=== PATIENT | female | born 1990 | race African-American/Black ===

== ENCOUNTER 2019-06-30 22:39 | Emergency (ER) | payer SELFPAY ==
[~2019-06-30] VITALS: Ht 167.6 cm; Wt 81.0 kg
[2019-07-01 00:24] VITALS: BP 121/80
== END 2019-07-01 07:09 | disposition home or self-care (01) ==
LOC: ER 07-01 07:06
DX: G56.02 Carpal tunnel syndrome, left upper limb (principal)
CPT/HCPCS: 81025; 99283

== ENCOUNTER 2019-07-02 16:38 | Emergency (ER) | payer MEDICAID ==
[~2019-07-02] VITALS: Ht 167.6 cm; Wt 81.0 kg
[2019-07-02] MEDS ORDERED: LORAZEPAM 2MG/ML CPJ IV ONE (17:45)
[2019-07-02] MEDS ORDERED: SODIUM CHLORIDE 0.9% 1,000 ML IV ONE (17:45)
[2019-07-02 18:00] VITALS: BP 129/88
[2019-07-02 18:17] LABS: HEMATOCRIT 37.3 % (36.0-48.0); HEMOGLOBIN 12.6 g/dL (12.0-16.0); MEAN CORPUSCULAR HEMOGLOBIN 31.6 pg (28.0-32.0); MEAN CORPUSCULAR VOLUME 93.2 fL (81.0-99.0); PLATELET 277 x1000/uL (130-400); RED CELL DISTRIBUTION WIDTH 17.2 % (11.6-14.6)
[2019-07-02 18:24] LABS: CHLORIDE 105 mEq/L (98-107)
[2019-07-02 18:28] LABS: ETHANOL BLOOD 167 mg/dL
[2019-07-02 19:21] LABS: CLARITY URINE CLEAR (CLEAR); COLOR URINE YELLOW (YELLOW); KETONES URINE 2+ (NEGATIVE); LEUKOCYTE ESTERASE URINE NEGATIVE (NEGATIVE); NITRITE URINE NEGATIVE (NEGATIVE); OCCULT BLOOD URINE NEGATIVE (NEGATIVE); PROTEIN URINE NEGATIVE (NEGATIVE); SPECIFIC GRAVITY URINE 1.008 (1.005-1.030); UROBILINOGEN URINE 0.2 E.U./dL (0.2-1.0)
== END 2019-07-02 19:54 | disposition home or self-care (01) ==
LOC: ER 17:38
DX: F10.239 Alcohol dependence with withdrawal, unspecified (principal); R53.1 Weakness; Y90.6 Blood alcohol level of 120-199 mg/100 ml
CPT/HCPCS: 36415; 80053; 80320; 81003; 85027; 96374; 99283; J2060; J7030; G0480

== ENCOUNTER 2019-07-22 11:01 | Emergency (ER) | payer MEDICAID ==
[~2019-07-22] VITALS: Ht 167.6 cm; Wt 80.0 kg
[2019-07-22] MEDS ORDERED: HYDROCODONE/ACETAMINOPHEN 5/325MG TABLET PO ONE (14:15)
[2019-07-22] MEDS ORDERED: TETANUS, DIPHTHERIA, PERTUSSIS VAC/PF 0.5ML (>7YR OLD) IM ONE (14:30)
[2019-07-22] MEDS ORDERED: BACITRACIN 15GM TUBE TOP ONE (15:15)
[2019-07-22 15:32] VITALS: BP 135/93
== END 2019-07-22 15:33 | disposition home or self-care (01) ==
LOC: ER 11:01
DX: S62.616A Displaced fracture of proximal phalanx of right little finger, initial encounter for closed fracture (principal); W01.0XXA Fall on same level from slipping, tripping and stumbling without subsequent striking against object, initial encounter; Y93.89 Activity, other specified; Y92.89 Other specified places as the place of occurrence of the external cause; Y99.8 Other external cause status
CPT/HCPCS: 29125; 73110; 73130; 81025; 90471; 90715; 99283

== ENCOUNTER 2020-03-13 15:49 | Emergency (ER) | payer MEDICAID ==
[~2020-03-13] VITALS: Ht 167.6 cm; Wt 68.0 kg
[2020-03-13] MEDS ORDERED: FLUORESCEIN SODIUM 1MG/STRIP EACHEYE ONE (17:30)
[2020-03-13] MEDS ORDERED: TETRACAINE 0.5% OPHTH DROPS 4ML LEFTEYE ONE (17:30)
[2020-03-13] MEDS ORDERED: HYDROCODONE/ACETAMINOPHEN 5/325MG TABLET PO ONE (17:30)
[2020-03-13 20:29] VITALS: BP 138/64
== END 2020-03-13 20:30 | disposition home or self-care (01) ==
LOC: ER 15:49
DX: S05.91XA Unspecified injury of right eye and orbit, initial encounter (principal); X58.XXXA Exposure to other specified factors, initial encounter; Y93.89 Activity, other specified; Y92.89 Other specified places as the place of occurrence of the external cause; Y99.8 Other external cause status
CPT/HCPCS: 70486; 81025; 99285

== ENCOUNTER 2020-05-07 01:06 | Emergency (ER) | payer MEDICAID ==
[~2020-05-07] VITALS: Ht 167.6 cm; Wt 76.0 kg
[2020-05-07 03:10] LABS: CHLORIDE 97 mEq/L (98-107)
[2020-05-07 03:15] LABS: HEMOGLOBIN. 13.4 g/dL (12.0-16.0); MEAN CORPUSCULAR HEMOGLOBIN 34.9 pg (28.0-32.0); MEAN CORPUSCULAR VOLUME 101.7 fL (81.0-99.0); MEAN PLATELET VOLUME 9.6 fl (7.4-10.4); PLATELET 226 x1000/uL (130-400); RED BLOOD CELL COUNT 3.83 mill/uL (4.2-5.4); RED CELL DISTRIBUTION WIDTH 15.5 % (11.6-14.6)
[2020-05-07] MEDS ORDERED: ONDANSETRON HCL 4MG/2ML INJ IV ONE (04:00)
[2020-05-07] MEDS ORDERED: SODIUM CHLORIDE 0.9% 1,000 ML IV ONE (04:28)
[2020-05-07] MEDS ORDERED: MORPHINE SULFATE 2 MG/ML CPJ (NOT FOR IM USE) IV ONE (04:45)
[2020-05-07 05:57] VITALS: BP 135/84
[2020-05-07 07:16] LABS: PLATELET ESTIMATE NORMAL
== END 2020-05-07 06:00 | disposition home or self-care (01) ==
LOC: ER 01:06
DX: K85.90 Acute pancreatitis without necrosis or infection, unspecified (principal); R11.2 Nausea with vomiting, unspecified
CPT/HCPCS: 36415; 80053; 83690; 85025; 96361; 96374; 96375; 99284; J2270; J2405; J7030

== ENCOUNTER 2020-06-19 09:27 | Emergency (ER) | payer MEDICAID ==
[~2020-06-19] VITALS: Ht 167.6 cm; Wt 63.0 kg
[2020-06-19 10:53] LABS: BASOPHILS % 0.9 % (0.0-2.0); EOSINOPHILS % 0.2 % (0.0-5.0); HEMOGLOBIN. 13.9 g/dL (12.0-16.0); LYMPHOCYTES % 17.2 % (20.0-50.0); MEAN CORPUSCULAR HEMOGLOBIN 32.5 pg (28.0-32.0); MEAN CORPUSCULAR VOLUME 95.8 fL (81.0-99.0); MEAN PLATELET VOLUME 7.6 fl (7.4-10.4); MONOCYTES % 4.8 % (2.0-8.0); NEUTROPHILS % 76.9 % (40.0-76.0); PLATELET 303 x1000/uL (130-400); RED BLOOD CELL COUNT 4.28 mill/uL (4.2-5.4); RED CELL DISTRIBUTION WIDTH 14.7 % (11.6-14.6)
[2020-06-19 11:00] LABS: CHLORIDE 105 mEq/L (98-107)
[2020-06-19 11:04] LABS: INR 1.1; PROTHROMBIN TIME 11.8 sec (9.6-11.0)
[2020-06-19 11:07] LABS: CLARITY URINE TURBID (CLEAR); COLOR URINE ORANGE (YELLOW); KETONES URINE NEGATIVE (NEGATIVE); LEUKOCYTE ESTERASE URINE 3+ (NEGATIVE); NITRITE URINE POSITIVE (NEGATIVE); OCCULT BLOOD URINE 3+ (NEGATIVE); PH URINE 6.5 (4.5-8.0); PROTEIN URINE 2+ (NEGATIVE); SPECIFIC GRAVITY URINE 1.013 (1.005-1.030)
[2020-06-19] MEDS ORDERED: KETOROLAC 30MG/ML VIAL IV ONE (11:15)
[2020-06-19 11:52] VITALS: BP 113/81
== END 2020-06-19 11:48 | disposition home or self-care (01) ==
LOC: ER 09:27
DX: T78.40XA Allergy, unspecified, initial encounter (principal); N39.0 Urinary tract infection, site not specified
CPT/HCPCS: 36415; 80053; 81003; 83690; 85025; 85610; 87077; 87086; 87186; 93005; 96374; 99284; J1885

== ENCOUNTER 2020-08-11 20:25 | Emergency (ER) | payer MEDICAID ==
[~2020-08-11] VITALS: Ht 167.6 cm; Wt 68.2 kg
[2020-08-11 22:02] LABS: CLARITY URINE CLEAR (CLEAR); COLOR URINE YELLOW (YELLOW); KETONES URINE 1+ (NEGATIVE); LEUKOCYTE ESTERASE URINE TRACE (NEGATIVE); NITRITE URINE NEGATIVE (NEGATIVE); OCCULT BLOOD URINE TRACE (NEGATIVE); PH URINE 6.5 (4.5-8.0); PROTEIN URINE 1+ (NEGATIVE); SPECIFIC GRAVITY URINE 1.028 (1.005-1.030)
[2020-08-11] MEDS ORDERED: KETOROLAC 60MG/2ML VIAL IM STA (22:36)
[2020-08-11 23:59] LABS: BASOPHILS % 0.9 % (0.0-2.0); EOSINOPHILS % 0.2 % (0.0-5.0); HEMATOCRIT. 44.3 % (36.0-48.0); HEMOGLOBIN. 15.1 g/dL (12.0-16.0); LYMPHOCYTES % 14.6 % (20.0-50.0); MEAN PLATELET VOLUME 7.4 fl (7.4-10.4); NEUTROPHILS % 76.3 % (40.0-76.0); PLATELET 309 x1000/uL (130-400); RED BLOOD CELL COUNT 4.57 mill/uL (4.2-5.4); RED CELL DISTRIBUTION WIDTH 15.6 % (11.6-14.6)
[2020-08-12 00:03] LABS: CHLORIDE 98 mEq/L (98-107)
[2020-08-12] MEDS ORDERED: HYDROCODONE/ACETAMINOPHEN 5/325MG TABLET PO ONE (00:15)
[2020-08-12 00:35] VITALS: BP 144/98
== END 2020-08-12 01:23 | disposition home or self-care (01) ==
LOC: ER 20:25
DX: N30.00 Acute cystitis without hematuria (principal)
CPT/HCPCS: 36415; 71045; 74018; 80053; 81003; 81025; 83690; 85025; 96372; 99284; J1885

== ENCOUNTER 2020-12-18 10:52 | Emergency (ER) | payer MEDICAID ==
[~2020-12-18] VITALS: Ht 167.6 cm; Wt 63.0 kg
[2020-12-18] MEDS ORDERED: LACTATED RINGERS 1,000 ML IV SCH (12:15)
[2020-12-18] MEDS ORDERED: MORPHINE SULFATE 10 MG/ML CPJ IV NR (12:30)
[2020-12-18 13:20] LABS: CHLORIDE 89 mEq/L (98-107)
[2020-12-18 13:27] LABS: ETHANOL BLOOD < 10 mg/dL; HCG SCREEN NEGATIVE
[2020-12-18 15:02] LABS: BASOPHILS % 0.6 % (0.0-2.0); HEMATOCRIT. 41.2 % (36.0-48.0); HEMOGLOBIN. 13.5 g/dL (12.0-16.0); LYMPHOCYTES % 15.5 % (20.0-50.0); MEAN CORPUSCULAR HEMOGLOBIN 30.7 pg (28.0-32.0); MEAN CORPUSCULAR VOLUME 93.6 fL (81.0-99.0); MEAN PLATELET VOLUME 7.8 fl (7.4-10.4); MONOCYTES % 8.1 % (2.0-8.0); NEUTROPHILS % 75.8 % (40.0-76.0); PLATELET 209 x1000/uL (130-400); RED CELL DISTRIBUTION WIDTH 15.3 % (11.6-14.6)
[2020-12-18 17:27] LABS: CHLORIDE 100 mEq/L (98-107)
[2020-12-18] MEDS ORDERED: MORPHINE SULFATE 4 MG/ML CPJ (NOT FOR IM USE) IV PRN (17:30)
[2020-12-18 17:33] LABS: BETA HYDROXYBUTYRATE 1.7 mMol/L (0.0-0.3)
[2020-12-18] MEDS ORDERED: MAG355OR21 MT (18:37)
[2020-12-18] MEDS ORDERED: ONDA4TAB5 MT (18:37)
[2020-12-18 21:26] VITALS: BP 139/87
== END 2020-12-18 21:35 | disposition home or self-care (01) ==
LOC: ER 10:52 → CANBEDREQ 22:16
DX: R10.9 Unspecified abdominal pain (principal); I10 Essential (primary) hypertension; F10.20 Alcohol dependence, uncomplicated; Y90.0 Blood alcohol level of less than 20 mg/100 ml
CPT/HCPCS: 36415; 74174; 80048; 80076; 80320; 80329; 81025; 82010; 83605; 83690; 84703; 85025; 93005; 96365; 96366; 96375; 99285; J2270; Z7610; G0480

== ENCOUNTER 2021-01-12 10:45 | Inpatient (IN) | payer MEDICAID, OTHER ==
[~2021-01-12] VITALS: Ht 165.1 cm; Wt 61.7 kg
[~2021-01-12 10:45] MED LIST: DEXT 5%/0.45% NACL KCL 20MEQ/L 1,000 ML IV SCH; MAG355OR21 MT; ONDA4TAB5 MT
[2021-01-12] MEDS ORDERED: METOCLOPRAMIDE HCL 10MG/2ML VIAL IV STA (11:06)
[2021-01-12] MEDS ORDERED: MAGNESIUM/ALUMINUM HYDROXIDE/SIMETHICONE 30ML UDC PO STA (11:06)
[2021-01-12] MEDS ORDERED: FAMOTIDINE 20MG/2ML VIAL IV STA (11:06)
[2021-01-12] MEDS ORDERED: SODIUM CHLORIDE 0.9% 1,000 ML IV ONE (11:15)
[2021-01-12 11:28] LABS: BASOPHILS % 0.7 % (0.0-2.0); EOSINOPHILS % 0.1 % (0.0-5.0); HEMATOCRIT. 40.7 % (36.0-48.0); HEMOGLOBIN. 13.6 g/dL (12.0-16.0); LYMPHOCYTES % 10.3 % (20.0-50.0); MEAN CORPUSCULAR HEMOGLOBIN 30.9 pg (28.0-32.0); MEAN CORPUSCULAR VOLUME 92.2 fL (81.0-99.0); MEAN PLATELET VOLUME 7.9 fl (7.4-10.4); MONOCYTES % 5.6 % (2.0-8.0); NEUTROPHILS % 83.3 % (40.0-76.0); PLATELET 174 x1000/uL (130-400); RED BLOOD CELL COUNT 4.41 mill/uL (4.2-5.4); RED CELL DISTRIBUTION WIDTH 16.5 % (11.6-14.6)
[2021-01-12 11:36] LABS: CHLORIDE 101 mEq/L (98-107); PROTHROMBIN TIME 10.5 sec (9.6-11.0)
[2021-01-12 11:38] LABS: HCG SCREEN NEGATIVE
[2021-01-12 11:41] LABS: ETHANOL BLOOD 162 mg/dL
[2021-01-12] MEDS ORDERED: KETOROLAC 15MG/ML VIAL IV ONE (11:45)
[2021-01-12 14:20] LABS: CLARITY URINE CLEAR (CLEAR); COLOR URINE YELLOW (YELLOW); KETONES URINE 4+ (NEGATIVE); LEUKOCYTE ESTERASE URINE NEGATIVE (NEGATIVE); NITRITE URINE NEGATIVE (NEGATIVE); OCCULT BLOOD URINE 2+ (NEGATIVE); PH URINE 5.5 (4.5-8.0); PROTEIN URINE 1+ (NEGATIVE); UROBILINOGEN URINE 0.2 E.U./dL (0.2-1.0)
[2021-01-12] MEDS ORDERED: MORPHINE SULFATE 4 MG/ML CPJ (NOT FOR IM USE) IV ONE (14:30)
[2021-01-12 15:01] LABS: *AMPHETAMINES SCREEN URINE NEGATIVE (NEGATIVE); *BARBITURATES SCREEN URINE NEGATIVE (NEGATIVE); *BENZODIAZEPINES SCREEN URINE NEGATIVE (NEGATIVE); METHADONE URINE SCREEN NEGATIVE (NEGATIVE)
[2021-01-12 15:02] LABS: CANNABINOID URINE SCREEN NEGATIVE (NEGATIVE); OPIATES URINE SCREEN NEGATIVE (NEGATIVE); PHENCYCLIDINE URINE SCREEN NEGATIVE (NEGATIVE)
[2021-01-12 15:05] LABS: *COCAINE SCREEN URINE PRESUMTIVE POSITIVE (NEGATIVE)
[2021-01-12 17:15] VITALS: BP 143/94
[2021-01-12 17:24] VITALS: BP 143/94
[2021-01-12] MEDS: MORPHINE SULFATE 2 MG/ML CPJ (NOT FOR IM USE) IV PRN ×2 (18:20→22:21)
[2021-01-12 20:00] VITALS: BP 127/89
[2021-01-12] MEDS: FOLIC ACID 1 MG, THIAMINE HCL 100 MG in DEXTROSE 5% WATER 1,000 ML IV SCH (21:27)
[2021-01-12] MEDS: PANTOPRAZOLE SODIUM 40 MG/VIAL IV SCH (21:28)
[2021-01-12] MEDS: ONDANSETRON HCL 4MG/2ML INJ IV PRN (21:28)
[2021-01-13] VITALS: BP 133/81
[2021-01-13] MEDS: ONDANSETRON HCL 4MG/2ML INJ IV PRN ×2 (02:16→08:53)
[2021-01-13] MEDS: MORPHINE SULFATE 2 MG/ML CPJ (NOT FOR IM USE) IV PRN ×5 (02:17→22:23)
[2021-01-13 04:00] VITALS: BP 126/84
[2021-01-13 08:00] VITALS: BP 130/89
[2021-01-13] MEDS ORDERED: DEXT 5%/0.45% NACL KCL 20MEQ/L 1,000 ML IV SCH (08:00)
[2021-01-13] MEDS: PANTOPRAZOLE SODIUM 40 MG/VIAL IV SCH (08:53)
[2021-01-13] MEDS ORDERED: MULTIVITAMINS,THER W-MINERALS TABLET PO SCH (09:00)
[2021-01-13 12:00] VITALS: BP 132/84
[2021-01-13] MEDS ORDERED: KETOROLAC 30MG/ML VIAL IV NR (15:30)
[2021-01-13 16:00] VITALS: BP 129/89
[2021-01-13] MEDS ORDERED: KETOROLAC 30MG/ML VIAL IV PRN (18:30)
[2021-01-13] MEDS: HYDROCODONE/ACETAMINOPHEN 5/325MG TABLET PO PRN (18:31)
[2021-01-13 20:00] VITALS: BP 130/92
[2021-01-13] MEDS: FOLIC ACID 1 MG, THIAMINE HCL 100 MG in DEXTROSE 5% WATER 1,000 ML IV SCH (21:15)
[2021-01-14] VITALS: BP 135/88
[2021-01-14 01:59] VITALS: BP 136/92
[2021-01-14] MEDS: HYDROCODONE/ACETAMINOPHEN 5/325MG TABLET PO PRN (01:59)
== END 2021-01-14 03:20 | disposition left against medical advice (07) | DRG 282 ==
LOC: ER 10:53 → 6EST 14:54 → ENRESERV 16:20
PROVIDERS: ADMIT Internal Medicine; ATTEND Internal Medicine
DX: K85.90 Acute pancreatitis without necrosis or infection, unspecified (principal); F10.129 Alcohol abuse with intoxication, unspecified; E87.1 Hypo-osmolality and hyponatremia; F14.90 Cocaine use, unspecified, uncomplicated; Y90.9 Presence of alcohol in blood, level not specified; K76.0 Fatty (change of) liver, not elsewhere classified; Y90.6 Blood alcohol level of 120-199 mg/100 ml; Z82.49 Family history of ischemic heart disease and other diseases of the circulatory system; Z71.51 Drug abuse counseling and surveillance of drug abuser; Z71.41 Alcohol abuse counseling and surveillance of alcoholic; K70.10 Alcoholic hepatitis without ascites
CPT/HCPCS: 36415; 76700; 80053; 80305; 80320; 81003; 84703; 85025; 93005; 99285; C9113; J1885; J2270; J2405; J2765; J3411; J3490; J7030; J7070; G0480

== ENCOUNTER 2021-01-14 11:19 | Inpatient (IN) | payer MEDICAID, OTHER ==
[~2021-01-14] VITALS: Ht 167.6 cm; Wt 63.5 kg
[~2021-01-14 11:19] MED LIST changes: -DEXT 5%/0.45% NACL KCL 20MEQ/L 1,000 ML IV SCH
[2021-01-14 12:47] LABS: BASOPHILS % 0.2 % (0.0-2.0); EOSINOPHILS % 0.2 % (0.0-5.0); HEMATOCRIT. 40.1 % (36.0-48.0); HEMOGLOBIN. 13.6 g/dL (12.0-16.0); LYMPHOCYTES % 7.3 % (20.0-50.0); MEAN CORPUSCULAR HEMOGLOBIN 31.7 pg (28.0-32.0); MEAN CORPUSCULAR VOLUME 93.9 fL (81.0-99.0); MEAN PLATELET VOLUME 8.8 fl (7.4-10.4); MONOCYTES % 7.5 % (2.0-8.0); NEUTROPHILS % 84.8 % (40.0-76.0); PLATELET 135 x1000/uL (130-400); RED BLOOD CELL COUNT 4.28 mill/uL (4.2-5.4); RED CELL DISTRIBUTION WIDTH 15.8 % (11.6-14.6)
[2021-01-14 12:56] LABS: CHLORIDE 98 mEq/L (98-107)
[2021-01-14 13:15] LABS: CLARITY URINE CLOUDY (CLEAR); COLOR URINE ORANGE (YELLOW); KETONES URINE 4+ (NEGATIVE); LEUKOCYTE ESTERASE URINE TRACE (NEGATIVE); NITRITE URINE POSITIVE (NEGATIVE); OCCULT BLOOD URINE 2+ (NEGATIVE); PROTEIN URINE 2+ (NEGATIVE); SPECIFIC GRAVITY URINE 1.043 (1.005-1.030); UROBILINOGEN URINE 0.2 E.U./dL (0.2-1.0)
[2021-01-14] MEDS ORDERED: ONDANSETRON HCL 4MG/2ML INJ IV STA (13:38)
[2021-01-14] MEDS ORDERED: MORPHINE SULFATE 4 MG/ML CPJ (NOT FOR IM USE) IV STA (13:38)
[2021-01-14] MEDS ORDERED: IPRATROPIUM/ALBUTEROL 0.5-3(2.5)MG/3ML NEB HHN PRN (16:15)
[2021-01-14] MEDS ORDERED: LORAZEPAM 2MG/ML CPJ IV PRN (16:15)
[2021-01-14] MEDS ORDERED: ACETAMINOPHEN 325MG TABLET PO PRN ×2 (16:15)
[2021-01-14] MEDS: LACTATED RINGERS 1,000 ML IV SCH (16:34)
[2021-01-14] MEDS: MORPHINE SULFATE 2 MG/ML CPJ (NOT FOR IM USE) IV PRN ×2 (18:10→22:21)
[2021-01-14 18:37] VITALS: BP 142/104
[2021-01-14 20:00] VITALS: BP 145/96
[2021-01-14] MEDS: CHLORDIAZEPOXIDE 25MG CAPSULE PO SCH (21:34)
[2021-01-15] VITALS: BP 138/94
[2021-01-15] MEDS: ONDANSETRON HCL 4MG/2ML INJ IV PRN (01:20)
[2021-01-15] MEDS: MORPHINE SULFATE 2 MG/ML CPJ (NOT FOR IM USE) IV PRN ×6 (02:37→23:20)
[2021-01-15 04:00] VITALS: BP 130/89
[2021-01-15 06:22] LABS: CHLORIDE 97 mEq/L (98-107)
[2021-01-15] MEDS: LACTATED RINGERS 1,000 ML IV SCH ×2 (06:39→23:19)
[2021-01-15] MEDS: CHLORDIAZEPOXIDE 25MG CAPSULE PO SCH ×3 (06:39→23:20)
[2021-01-15 06:46] LABS: BASOPHILS % 0.4 % (0.0-2.0); EOSINOPHILS % 0.4 % (0.0-5.0); HEMATOCRIT. 39.2 % (36.0-48.0); LYMPHOCYTES % 8.6 % (20.0-50.0); MEAN CORPUSCULAR VOLUME 93.5 fL (81.0-99.0); NEUTROPHILS % 79.6 % (40.0-76.0); PLATELET 152 x1000/uL (130-400); RED BLOOD CELL COUNT 4.19 mill/uL (4.2-5.4); RED CELL DISTRIBUTION WIDTH 16.4 % (11.6-14.6)
[2021-01-15 08:00] VITALS: BP 131/91
[2021-01-15] MEDS: THIAMINE HCL 100MG TABLET PO SCH (09:21)
[2021-01-15] MEDS: MULTIVITAMINS,THER W-MINERALS TABLET PO SCH (09:21)
[2021-01-15] MEDS: FOLIC ACID 1MG TABLET PO SCH (09:22)
[2021-01-15 12:00] VITALS: BP 133/84
[2021-01-15 20:00] VITALS: BP 137/96
[2021-01-16] VITALS: BP 139/100
[2021-01-16] MEDS: MORPHINE SULFATE 2 MG/ML CPJ (NOT FOR IM USE) IV PRN ×4 (03:31→20:05)
[2021-01-16 04:00] VITALS: BP 116/76
[2021-01-16] MEDS: CHLORDIAZEPOXIDE 25MG CAPSULE PO SCH ×3 (05:43→21:26)
[2021-01-16 06:48] LABS: CHLORIDE 100 mEq/L (98-107)
[2021-01-16 06:54] LABS: PHOSPHORUS 3.6 mg/dL (2.5-4.9)
[2021-01-16 07:02] LABS: BASOPHILS % 0.9 % (0.0-2.0); EOSINOPHILS % 1.2 % (0.0-5.0); HEMATOCRIT. 38.1 % (36.0-48.0); HEMOGLOBIN. 12.7 g/dL (12.0-16.0); LYMPHOCYTES % 16.8 % (20.0-50.0); MEAN CORPUSCULAR HEMOGLOBIN 31.2 pg (28.0-32.0); MEAN CORPUSCULAR VOLUME 93.7 fL (81.0-99.0); MEAN PLATELET VOLUME 8.3 fl (7.4-10.4); MONOCYTES % 14.2 % (2.0-8.0); NEUTROPHILS % 66.9 % (40.0-76.0); PLATELET 174 x1000/uL (130-400); RED BLOOD CELL COUNT 4.07 mill/uL (4.2-5.4); RED CELL DISTRIBUTION WIDTH 16.5 % (11.6-14.6)
[2021-01-16 08:00] VITALS: BP 132/101
[2021-01-16] MEDS: FOLIC ACID 1MG TABLET PO SCH (08:34)
[2021-01-16] MEDS: THIAMINE HCL 100MG TABLET PO SCH (08:34)
[2021-01-16] MEDS: ONDANSETRON HCL 4MG/2ML INJ IV PRN (08:34)
[2021-01-16] MEDS: MULTIVITAMINS,THER W-MINERALS TABLET PO SCH (08:34)
[2021-01-16 12:00] VITALS: BP 146/107
[2021-01-16 16:00] VITALS: BP 134/99
[2021-01-16 20:00] VITALS: BP 139/98
[2021-01-16] MEDS ORDERED: POTASSIUM CHLORIDE 20MEQ TABLET SR PO NR (22:30)
[2021-01-17] VITALS: BP 136/100
[2021-01-17] MEDS: MORPHINE SULFATE 2 MG/ML CPJ (NOT FOR IM USE) IV PRN ×5 (00:12→21:06)
[2021-01-17] MEDS: LACTATED RINGERS 1,000 ML IV SCH ×2 (01:30→15:06)
[2021-01-17] MEDS: CHLORDIAZEPOXIDE 25MG CAPSULE PO SCH ×3 (05:05→21:06)
[2021-01-17] MEDS: FOLIC ACID 1MG TABLET PO SCH (09:24)
[2021-01-17] MEDS: THIAMINE HCL 100MG TABLET PO SCH (09:24)
[2021-01-17] MEDS: MULTIVITAMINS,THER W-MINERALS TABLET PO SCH (09:24)
[2021-01-17 12:00] VITALS: BP 139/104
[2021-01-17] MEDS: CLONIDINE 0.1MG TABLET PO PRN (12:09)
[2021-01-17 15:50] LABS: BASOPHILS % 0.9 % (0.0-2.0); EOSINOPHILS % 1.5 % (0.0-5.0); HEMATOCRIT. 36.1 % (36.0-48.0); HEMOGLOBIN. 12.1 g/dL (12.0-16.0); LYMPHOCYTES % 16.9 % (20.0-50.0); MEAN CORPUSCULAR VOLUME 92.1 fL (81.0-99.0); MONOCYTES % 13.5 % (2.0-8.0); NEUTROPHILS % 67.2 % (40.0-76.0); PLATELET 217 x1000/uL (130-400); RED BLOOD CELL COUNT 3.91 mill/uL (4.2-5.4); RED CELL DISTRIBUTION WIDTH 16.4 % (11.6-14.6)
[2021-01-17 16:00] VITALS: BP 118/69
[2021-01-17 16:02] LABS: CHLORIDE 101 mEq/L (98-107)
[2021-01-17 20:00] VITALS: BP 128/100
[2021-01-18] VITALS: BP 126/98
[2021-01-18] MEDS: MORPHINE SULFATE 2 MG/ML CPJ (NOT FOR IM USE) IV PRN ×2 (01:20→05:25)
[2021-01-18 04:00] VITALS: BP 147/98
[2021-01-18] MEDS: CHLORDIAZEPOXIDE 25MG CAPSULE PO SCH ×2 (05:23→14:30)
[2021-01-18] MEDS: LACTATED RINGERS 1,000 ML IV SCH (05:25)
[2021-01-18 07:26] LABS: HEMATOCRIT. 35.7 % (36.0-48.0); MEAN CORPUSCULAR HEMOGLOBIN 31.5 pg (28.0-32.0); MEAN CORPUSCULAR VOLUME 93.5 fL (81.0-99.0); MEAN PLATELET VOLUME 8.5 fl (7.4-10.4); PLATELET 249 x1000/uL (130-400); RED BLOOD CELL COUNT 3.82 mill/uL (4.2-5.4)
[2021-01-18 07:59] LABS: CHLORIDE 101 mEq/L (98-107)
[2021-01-18 08:00] VITALS: BP 116/75
[2021-01-18] MEDS: FOLIC ACID 1MG TABLET PO SCH (08:55)
[2021-01-18] MEDS: MULTIVITAMINS,THER W-MINERALS TABLET PO SCH (08:55)
[2021-01-18] MEDS: THIAMINE HCL 100MG TABLET PO SCH (08:55)
[2021-01-18 12:00] VITALS: BP 133/98
[2021-01-18] MEDS: CLONIDINE 0.1MG TABLET PO PRN (12:50)
[2021-01-18] MEDS ORDERED: CYCL5TAB MT (13:29)
[2021-01-18] MEDS ORDERED: HYDR-4001 MT (13:29)
[2021-01-18 14:23] LABS: PLATELET ESTIMATE NORMAL
[2021-01-18 15:14] VITALS: BP_SYST 123; BP_SYST 133; BP_DIAS 89; BP_DIAS 98
[2021-01-18 16:00] VITALS: BP 123/89
== END 2021-01-18 16:40 | disposition home or self-care (01) | DRG 282 ==
LOC: ER 11:19 → EDBEDREQSVC 13:50 → EDBEDREQ 13:50 → EDBEDREQTM 13:50 → ENRESERV 15:07 → EDBEDREQ 15:32 → 6EST 15:33
PROVIDERS: ADMIT Internal Medicine; ATTEND Internal Medicine
PROC: 05H933Z Insertion of Infusion Device into Right Brachial Vein, Percutaneous Approach (ICD-10-PCS; principal; 2021-01-17)
PROC: B54MZZA Ultrasonography of Right Upper Extremity Veins, Guidance (ICD-10-PCS; 2021-01-17)
PROC: B51M1ZA Fluoroscopy of Right Upper Extremity Veins using Low Osmolar Contrast, Guidance (ICD-10-PCS; 2021-01-17)
DX: K85.20 Alcohol induced acute pancreatitis without necrosis or infection (principal); K76.0 Fatty (change of) liver, not elsewhere classified; R91.1 Solitary pulmonary nodule; Z82.49 Family history of ischemic heart disease and other diseases of the circulatory system; F10.99 Alcohol use, unspecified with unspecified alcohol-induced disorder; R16.0 Hepatomegaly, not elsewhere classified; F19.99 Other psychoactive substance use, unspecified with unspecified psychoactive substance-induced disorder
CPT/HCPCS: 36415; 36573; 80048; 80053; 81003; 83735; 84100; 85025; 93005; 99285; C1725; C1893; J2270; J2405; J7042

== ENCOUNTER 2021-09-07 13:39 | Emergency (ER) | payer MEDICAID ==
[~2021-09-07] VITALS: Ht 167.6 cm; Wt 64.0 kg
[~2021-09-07 13:39] MED LIST changes: +CYCL5TAB MT; +HYDR-4001 MT
[2021-09-07 14:59] VITALS: BP 123/83
== END 2021-09-07 18:16 | disposition left against medical advice (07) ==
LOC: ER 13:39
DX: Z53.21 Procedure and treatment not carried out due to patient leaving prior to being seen by health care provider (principal)

== ENCOUNTER 2021-09-25 18:56 | Emergency (ER) | payer MEDICAID ==
[~2021-09-25] VITALS: Ht 167.6 cm; Wt 67.0 kg
[2021-09-25 21:51] LABS: BASOPHILS % 0.3 % (0.0-2.0); EOSINOPHILS % 0.4 % (0.0-5.0); HEMATOCRIT. 38.7 % (36.0-48.0); HEMOGLOBIN. 13.5 g/dL (12.0-16.0); MEAN CORPUSCULAR HEMOGLOBIN 32.2 pg (28.0-32.0); MEAN CORPUSCULAR VOLUME 92.6 fL (81.0-99.0); MEAN PLATELET VOLUME 7.3 fl (7.4-10.4); MONOCYTES % 7.1 % (2.0-8.0); NEUTROPHILS % 68.2 % (40.0-76.0); PLATELET 517 x1000/uL (130-400); RED BLOOD CELL COUNT 4.18 mill/uL (4.2-5.4); RED CELL DISTRIBUTION WIDTH 15.5 % (11.6-14.6)
[2021-09-25 21:57] LABS: CHLORIDE 105 mEq/L (98-107)
[2021-09-25 22:00] LABS: HCG SCREEN NEGATIVE
[2021-09-26] MEDS ORDERED: KETOROLAC 30MG/ML VIAL IV STA (00:12)
[2021-09-26] MEDS ORDERED: SODIUM CHLORIDE 0.9% 1,000 ML IV ONE (00:15)
[2021-09-26 00:48] LABS: CLARITY URINE CLEAR (CLEAR); COLOR URINE YELLOW (YELLOW); KETONES URINE 1+ (NEGATIVE); LEUKOCYTE ESTERASE URINE NEGATIVE (NEGATIVE); NITRITE URINE NEGATIVE (NEGATIVE); OCCULT BLOOD URINE NEGATIVE (NEGATIVE); PH URINE 5.5 (4.5-8.0); PROTEIN URINE NEGATIVE (NEGATIVE); SPECIFIC GRAVITY URINE 1.023 (1.005-1.030); UROBILINOGEN URINE 0.2 E.U./dL (0.2-1.0)
[2021-09-26] MEDS ORDERED: OMEP40CA20 MT (03:06)
[2021-09-26] MEDS ORDERED: MORPHINE SULFATE 2 MG/ML CPJ (NOT FOR IM USE) IV ONE (03:15)
[2021-09-26 03:21] VITALS: BP 121/81
== END 2021-09-26 03:48 | disposition home or self-care (01) ==
LOC: ER 18:56
DX: R10.13 Epigastric pain (principal); F12.10 Cannabis abuse, uncomplicated; Z87.19 Personal history of other diseases of the digestive system
CPT/HCPCS: 36415; 74176; 80053; 81003; 81025; 83690; 84703; 85025; 96361; 96374; 96375; 99284; J1885; J2270; J7030

== ENCOUNTER 2021-10-04 20:10 | Emergency (ER) | payer MEDICAID ==
[~2021-10-04] VITALS: Ht 167.6 cm; Wt 64.0 kg
[~2021-10-04 20:10] MED LIST changes: +OMEP40CA20 MT
[2021-10-04 21:33] LABS: CLARITY URINE CLEAR (CLEAR); COLOR URINE YELLOW (YELLOW); KETONES URINE NEGATIVE (NEGATIVE); LEUKOCYTE ESTERASE URINE NEGATIVE (NEGATIVE); NITRITE URINE NEGATIVE (NEGATIVE); OCCULT BLOOD URINE NEGATIVE (NEGATIVE); PROTEIN URINE NEGATIVE (NEGATIVE); SPECIFIC GRAVITY URINE 1.009 (1.005-1.030); UROBILINOGEN URINE 0.2 E.U./dL (0.2-1.0)
[2021-10-05 04:15] LABS: BASOPHILS % 0.4 % (0.0-2.0); EOSINOPHILS % 1.3 % (0.0-5.0); HEMATOCRIT. 37.4 % (36.0-48.0); HEMOGLOBIN. 12.7 g/dL (12.0-16.0); LYMPHOCYTES % 25.5 % (20.0-50.0); MEAN CORPUSCULAR VOLUME 94.3 fL (81.0-99.0); MEAN PLATELET VOLUME 7.4 fl (7.4-10.4); MONOCYTES % 9.1 % (2.0-8.0); NEUTROPHILS % 63.7 % (40.0-76.0); PLATELET 265 x1000/uL (130-400); RED BLOOD CELL COUNT 3.96 mill/uL (4.2-5.4); RED CELL DISTRIBUTION WIDTH 15.7 % (11.6-14.6)
[2021-10-05 04:19] LABS: CHLORIDE 102 mEq/L (98-107)
[2021-10-05] MEDS ORDERED: SODIUM CHLORIDE 0.9% 1,000 ML IV ONE (04:30)
[2021-10-05] MEDS ORDERED: MORPHINE SULFATE 4 MG/ML CPJ (NOT FOR IM USE) IV ONE (04:30)
[2021-10-05] MEDS ORDERED: ONDANSETRON HCL 4MG/2ML INJ IV ONE (04:30)
[2021-10-05] MEDS ORDERED: VISCOUS LIDOCAINE 2% 15 ML UDC PO STA (05:21)
[2021-10-05] MEDS ORDERED: MAGNESIUM/ALUMINUM HYDROXIDE/SIMETHICONE 30ML UDC PO STA (05:21)
[2021-10-05] MEDS ORDERED: FAMOTIDINE 20MG/2ML VIAL IV ONE (05:30)
[2021-10-05] MEDS ORDERED: OMEP40CA20 MT (05:45)
[2021-10-05 06:33] VITALS: BP 113/75
== END 2021-10-05 06:33 | disposition home or self-care (01) ==
LOC: ER 20:10
DX: R10.13 Epigastric pain (principal); K29.70 Gastritis, unspecified, without bleeding; K21.9 Gastro-esophageal reflux disease without esophagitis; Z87.19 Personal history of other diseases of the digestive system
CPT/HCPCS: 36415; 80053; 81003; 81025; 83690; 85025; 96361; 96374; 96375; 99285; J2270; J2405; J3490; J7030

== ENCOUNTER 2021-12-05 20:08 | Emergency (ER) | payer MEDICAID, OTHER ==
[~2021-12-05] VITALS: Ht 167.6 cm; Wt 64.0 kg
[2021-12-05 22:20] LABS: CLARITY URINE CLEAR (CLEAR); COLOR URINE YELLOW (YELLOW); KETONES URINE TRACE (NEGATIVE); LEUKOCYTE ESTERASE URINE NEGATIVE (NEGATIVE); NITRITE URINE NEGATIVE (NEGATIVE); OCCULT BLOOD URINE TRACE (NEGATIVE); PH URINE 5.5 (4.5-8.0); PROTEIN URINE TRACE (NEGATIVE); SPECIFIC GRAVITY URINE 1.029 (1.005-1.030)
[2021-12-05] MEDS ORDERED: MORPHINE SULFATE 10 MG/ML CPJ IM ONE (23:00)
[2021-12-05] MEDS ORDERED: ONDANSETRON 4MG ODT PO ONE (23:00)
[2021-12-06 00:04] LABS: BASOPHILS % 0.7 % (0.0-2.0); EOSINOPHILS % 0.6 % (0.0-5.0); HEMOGLOBIN. 13.3 g/dL (12.0-16.0); LYMPHOCYTES % 36.3 % (20.0-50.0); MEAN CORPUSCULAR HEMOGLOBIN 30.6 pg (28.0-32.0); MEAN CORPUSCULAR VOLUME 89.6 fL (81.0-99.0); MEAN PLATELET VOLUME 7.5 fl (7.4-10.4); MONOCYTES % 7.3 % (2.0-8.0); NEUTROPHILS % 55.1 % (40.0-76.0); PLATELET 249 x1000/uL (130-400); RED BLOOD CELL COUNT 4.36 mill/uL (4.2-5.4); RED CELL DISTRIBUTION WIDTH 17.4 % (11.6-14.6)
[2021-12-06 00:13] LABS: CHLORIDE 109 mEq/L (98-107)
[2021-12-06] MEDS ORDERED: SODIUM CHLORIDE 0.9% 1,000 ML IV ONE (01:00)
[2021-12-06] MEDS ORDERED: ACET-2708 MT (02:28)
[2021-12-06] MEDS ORDERED: FAMO-135 MT (02:28)
[2021-12-06 03:25] VITALS: BP 101/66
== END 2021-12-06 04:02 | disposition home or self-care (01) ==
LOC: ER 20:08
DX: R10.12 Left upper quadrant pain (principal)
CPT/HCPCS: 36415; 80053; 81003; 81025; 83690; 85025; 96360; 96361; 96372; 99283; J2270; J7030; Q0162

== ENCOUNTER 2021-12-26 09:47 | Emergency (ER) | payer OTHER ==
[~2021-12-26] VITALS: Ht 167.6 cm; Wt 50.0 kg
[~2021-12-26 09:47] MED LIST changes: +ACET-2708 MT; +FAMO-135 MT
[2021-12-26] MEDS ORDERED: MAGNESIUM/ALUMINUM HYDROXIDE/SIMETHICONE 30ML UDC PO NR (10:19)
[2021-12-26] MEDS ORDERED: METOCLOPRAMIDE HCL 10MG/2ML VIAL IV NR (10:19)
[2021-12-26] MEDS ORDERED: MORPHINE SULFATE 4 MG/ML CPJ (NOT FOR IM USE) IV NR (10:19)
[2021-12-26] MEDS ORDERED: VISCOUS LIDOCAINE 2% 15 ML UDC PO NR (10:19)
[2021-12-26] MEDS ORDERED: PANTOPRAZOLE SODIUM 40 MG/VIAL IV NR (10:19)
[2021-12-26] MEDS ORDERED: SODIUM CHLORIDE 0.9% 1,000 ML IV ONE (10:30)
[2021-12-26 11:53] LABS: BASOPHILS % 1.3 % (0.0-2.0); EOSINOPHILS % 0.7 % (0.0-5.0); HEMATOCRIT. 40.1 % (36.0-48.0); HEMOGLOBIN. 13.3 g/dL (12.0-16.0); LYMPHOCYTES % 18.5 % (20.0-50.0); MEAN CORPUSCULAR HEMOGLOBIN 29.4 pg (28.0-32.0); MEAN CORPUSCULAR VOLUME 88.9 fL (81.0-99.0); MEAN PLATELET VOLUME 7.5 fl (7.4-10.4); MONOCYTES % 7.2 % (2.0-8.0); NEUTROPHILS % 72.3 % (40.0-76.0); PLATELET 446 x1000/uL (130-400); RED BLOOD CELL COUNT 4.51 mill/uL (4.2-5.4); RED CELL DISTRIBUTION WIDTH 19.3 % (11.6-14.6)
[2021-12-26 12:01] LABS: CHLORIDE 98 mEq/L (98-107)
[2021-12-26 12:21] LABS: ETHANOL BLOOD 37 mg/dL
[2021-12-26 13:01] LABS: CLARITY URINE CLEAR (CLEAR); COLOR URINE DARK YELLOW (YELLOW); KETONES URINE 4+ (NEGATIVE); LEUKOCYTE ESTERASE URINE TRACE (NEGATIVE); NITRITE URINE NEGATIVE (NEGATIVE); OCCULT BLOOD URINE NEGATIVE (NEGATIVE); PH URINE 5.5 (4.5-8.0); PROTEIN URINE 1+ (NEGATIVE); SPECIFIC GRAVITY URINE 1.036 (1.005-1.030)
[2021-12-26 13:14] LABS: *AMPHETAMINES SCREEN URINE NEGATIVE (NEGATIVE); *BARBITURATES SCREEN URINE NEGATIVE (NEGATIVE)
[2021-12-26 13:15] LABS: CANNABINOID URINE SCREEN NEGATIVE (NEGATIVE); METHADONE URINE SCREEN NEGATIVE (NEGATIVE); OPIATES URINE SCREEN NEGATIVE (NEGATIVE); PHENCYCLIDINE URINE SCREEN NEGATIVE (NEGATIVE)
[2021-12-26 13:17] LABS: *BENZODIAZEPINES SCREEN URINE PRESUMTIVE POSITIVE (NEGATIVE); *COCAINE SCREEN URINE PRESUMTIVE POSITIVE (NEGATIVE)
[2021-12-26] MEDS ORDERED: FAMO-135 MT (13:56)
[2021-12-26 14:15] VITALS: BP 118/83
== END 2021-12-26 14:40 | disposition home or self-care (01) ==
LOC: ER 09:47
DX: K29.20 Alcoholic gastritis without bleeding (principal); F10.10 Alcohol abuse, uncomplicated; F14.10 Cocaine abuse, uncomplicated; Y90.1 Blood alcohol level of 20-39 mg/100 ml
CPT/HCPCS: 36415; 71045; 80053; 80305; 80320; 81003; 83690; 83880; 84484; 85025; 96361; 96374; 96375; 99284; C9113; J2270; J2765; J7030; G0480

== ENCOUNTER 2022-03-10 18:34 | Emergency (ER) | payer MEDICAID, OTHER ==
[~2022-03-10] VITALS: Ht 167.6 cm; Wt 64.0 kg
[2022-03-10 19:09] VITALS: BP 131/91
[2022-03-10 20:03] LABS: BASOPHILS % 0.9 % (0.0-2.0); EOSINOPHILS % 0.3 % (0.0-5.0); HEMATOCRIT. 37.6 % (36.0-48.0); LYMPHOCYTES % 28.8 % (20.0-50.0); MEAN CORPUSCULAR VOLUME 87.3 fL (81.0-99.0); MEAN PLATELET VOLUME 7.8 fl (7.4-10.4); PLATELET 205 x1000/uL (130-400); RED CELL DISTRIBUTION WIDTH 19.2 % (11.6-14.6)
[2022-03-10 20:05] LABS: CHLORIDE 100 mEq/L (98-107)
[2022-03-10 20:07] LABS: HCG SCREEN NEGATIVE
[2022-03-10 20:09] LABS: ETHANOL BLOOD < 10 mg/dL
[2022-03-11] MEDS ORDERED: MAGNESIUM/ALUMINUM HYDROXIDE/SIMETHICONE 30ML UDC PO NR
[2022-03-11] MEDS ORDERED: KETOROLAC 30MG/ML VIAL IV NR
[2022-03-11 00:18] LABS: CLARITY URINE CLOUDY (CLEAR); COLOR URINE YELLOW (YELLOW); KETONES URINE TRACE (NEGATIVE); LEUKOCYTE ESTERASE URINE NEGATIVE (NEGATIVE); NITRITE URINE NEGATIVE (NEGATIVE); OCCULT BLOOD URINE NEGATIVE (NEGATIVE); PH URINE 6.5 (4.5-8.0); PROTEIN URINE NEGATIVE (NEGATIVE); SPECIFIC GRAVITY URINE 1.012 (1.005-1.030)
[2022-03-11] MEDS ORDERED: OMEP20TA15 MT (00:27)
[2022-03-11] MEDS ORDERED: HYDROCODONE/ACETAMINOPHEN 5/325MG TABLET PO ONE (00:30)
== END 2022-03-11 01:41 | disposition home or self-care (01) ==
LOC: ER 18:34
DX: K29.70 Gastritis, unspecified, without bleeding (principal); F10.229 Alcohol dependence with intoxication, unspecified; Y90.0 Blood alcohol level of less than 20 mg/100 ml; F14.10 Cocaine abuse, uncomplicated; Z79.899 Other long term (current) drug therapy
CPT/HCPCS: 36415; 80053; 80320; 81003; 83690; 84703; 85025; 96374; 99283; J1885; G0480

== ENCOUNTER 2022-06-01 15:10 | Emergency (ER) | payer OTHER ==
[~2022-06-01] VITALS: Ht 162.6 cm; Wt 64.0 kg
[~2022-06-01 15:10] MED LIST changes: +OMEP20TA15 MT; +PROT40 MT
[2022-06-01] MEDS ORDERED: VISCOUS LIDOCAINE 2% 15 ML UDC PO STA (16:30)
[2022-06-01] MEDS ORDERED: PANTOPRAZOLE SODIUM 40 MG/VIAL IV STA (16:30)
[2022-06-01] MEDS ORDERED: SODIUM CHLORIDE 0.9% 1,000 ML IV ONE (16:30)
[2022-06-01] MEDS ORDERED: MAGNESIUM/ALUMINUM HYDROXIDE/SIMETHICONE 30ML UDC PO STA (16:30)
[2022-06-01 17:08] LABS: EOSINOPHILS % 0.5 % (0.0-5.0); HEMATOCRIT. 38.3 % (36.0-48.0); HEMOGLOBIN. 12.6 g/dL (12.0-16.0); LYMPHOCYTES % 16.9 % (20.0-50.0); MEAN CORPUSCULAR HEMOGLOBIN 27.2 pg (28.0-32.0); MEAN CORPUSCULAR VOLUME 82.5 fL (81.0-99.0); MEAN PLATELET VOLUME 7.5 fl (7.4-10.4); MONOCYTES % 6.6 % (2.0-8.0); PLATELET 444 x1000/uL (130-400); RED BLOOD CELL COUNT 4.65 mill/uL (4.2-5.4); RED CELL DISTRIBUTION WIDTH 18.4 % (11.6-14.6)
[2022-06-01 17:23] LABS: CHLORIDE 104 mEq/L (98-107)
[2022-06-01 17:26] LABS: HCG SCREEN NEGATIVE
[2022-06-01 17:33] LABS: ETHANOL BLOOD < 10 mg/dL
[2022-06-01 17:33] LABS: CLARITY URINE CLOUDY (CLEAR); COLOR URINE DARK YELLOW (YELLOW); KETONES URINE 2+ (NEGATIVE); LEUKOCYTE ESTERASE URINE TRACE (NEGATIVE); NITRITE URINE NEGATIVE (NEGATIVE); OCCULT BLOOD URINE NEGATIVE (NEGATIVE); PROTEIN URINE 1+ (NEGATIVE); SPECIFIC GRAVITY URINE 1.036 (1.005-1.030)
[2022-06-01 17:46] LABS: *AMPHETAMINES SCREEN URINE NEGATIVE (NEGATIVE); *BARBITURATES SCREEN URINE NEGATIVE (NEGATIVE); *BENZODIAZEPINES SCREEN URINE NEGATIVE (NEGATIVE); *COCAINE SCREEN URINE NEGATIVE (NEGATIVE); CANNABINOID URINE SCREEN NEGATIVE (NEGATIVE); METHADONE URINE SCREEN NEGATIVE (NEGATIVE); OPIATES URINE SCREEN NEGATIVE (NEGATIVE); PHENCYCLIDINE URINE SCREEN NEGATIVE (NEGATIVE)
[2022-06-01] MEDS ORDERED: FAMO-135 MT (18:34)
[2022-06-01] MEDS ORDERED: MAG-55 MT (18:34)
[2022-06-01 18:44] VITALS: BP 136/62
== END 2022-06-01 18:49 | disposition home or self-care (01) ==
LOC: ER 15:10
DX: K29.70 Gastritis, unspecified, without bleeding (principal); F10.229 Alcohol dependence with intoxication, unspecified; F17.290 Nicotine dependence, other tobacco product, uncomplicated; Y90.0 Blood alcohol level of less than 20 mg/100 ml; Z79.899 Other long term (current) drug therapy
CPT/HCPCS: 36415; 80053; 80305; 80320; 81003; 81025; 83690; 84703; 85025; 93005; 96361; 96374; 99284; C9113; J7030; G0480

== ENCOUNTER 2022-06-30 11:31 | Emergency (ER) | payer OTHER ==
[~2022-06-30] VITALS: Ht 167.6 cm; Wt 70.0 kg
[~2022-06-30 11:31] MED LIST changes: +MAG-55 MT
[2022-06-30] MEDS ORDERED: KETOROLAC 30MG/ML VIAL IV STA (12:28)
[2022-06-30] MEDS ORDERED: ONDANSETRON HCL 4MG/2ML INJ IV STA (12:28)
[2022-06-30] MEDS ORDERED: SODIUM CHLORIDE 0.9% 1,000 ML IV ONE (12:30)
[2022-06-30 12:52] LABS: BASOPHILS % 0.6 % (0.0-2.0); EOSINOPHILS % 0.4 % (0.0-5.0); HEMATOCRIT. 38.5 % (36.0-48.0); HEMOGLOBIN. 12.7 g/dL (12.0-16.0); LYMPHOCYTES % 18.7 % (20.0-50.0); MEAN CORPUSCULAR HEMOGLOBIN 26.8 pg (28.0-32.0); MEAN CORPUSCULAR VOLUME 81.4 fL (81.0-99.0); MEAN PLATELET VOLUME 7.2 fl (7.4-10.4); NEUTROPHILS % 74.3 % (40.0-76.0); PLATELET 336 x1000/uL (130-400); RED BLOOD CELL COUNT 4.74 mill/uL (4.2-5.4); RED CELL DISTRIBUTION WIDTH 19.6 % (11.6-14.6)
[2022-06-30 12:58] LABS: CHLORIDE 98 mEq/L (98-107)
[2022-06-30 13:02] LABS: CLARITY URINE CLOUDY (CLEAR); COLOR URINE DARK YELLOW (YELLOW); KETONES URINE 1+ (NEGATIVE); LEUKOCYTE ESTERASE URINE TRACE (NEGATIVE); NITRITE URINE NEGATIVE (NEGATIVE); OCCULT BLOOD URINE 1+ (NEGATIVE); PH URINE 5.5 (4.5-8.0); PROTEIN URINE 1+ (NEGATIVE); SPECIFIC GRAVITY URINE 1.031 (1.005-1.030)
[2022-06-30 13:22] LABS: HCG SCREEN NEGATIVE
[2022-06-30] MEDS ORDERED: CHLORDIAZEPOXIDE 25MG CAPSULE PO ONE (13:30)
[2022-06-30] MEDS ORDERED: OMEP40CA20 MT (15:10)
[2022-06-30] MEDS ORDERED: ONDA4TAB50 MT (15:10)
[2022-06-30] MEDS ORDERED: CEPH500T MT (15:17)
[2022-06-30 15:25] VITALS: BP 108/68
== END 2022-06-30 15:30 | disposition home or self-care (01) ==
LOC: ER 11:31
DX: R10.33 Periumbilical pain (principal); R11.2 Nausea with vomiting, unspecified; R42 Dizziness and giddiness
CPT/HCPCS: 36415; 74176; 80053; 81003; 81025; 83690; 84703; 85025; 96361; 96374; 96375; 99284; J1885; J2405; J7030

== ENCOUNTER 2022-08-31 15:18 | Emergency (ER) | payer MEDICAID ==
[~2022-08-31] VITALS: Ht 167.6 cm; Wt 68.0 kg
[~2022-08-31 15:18] MED LIST changes: +ONDA4TAB50 MT
[2022-08-31] MEDS ORDERED: ACETAMINOPHEN 325MG TABLET PO ONE (17:45)
[2022-08-31] MEDS ORDERED: ALBU6.7H9 INH (19:11)
[2022-08-31] MEDS ORDERED: ACET-2708 MT (19:11)
[2022-08-31 20:00] VITALS: BP 124/77
== END 2022-08-31 19:30 | disposition home or self-care (01) ==
LOC: ER 15:26
DX: S90.32XA Contusion of left foot, initial encounter (principal); X58.XXXA Exposure to other specified factors, initial encounter; Y93.89 Activity, other specified; Y92.89 Other specified places as the place of occurrence of the external cause; Y99.8 Other external cause status; R05.9 Cough, unspecified; R06.02 Shortness of breath; Z20.822 Contact with and (suspected) exposure to COVID-19; F10.229 Alcohol dependence with intoxication, unspecified; F14.10 Cocaine abuse, uncomplicated; Y90.0 Blood alcohol level of less than 20 mg/100 ml
CPT/HCPCS: 71045; 73610; 73630; 81025; 87426; 93005; 99285; C9803

== ENCOUNTER 2022-09-10 16:59 | Emergency (ER) | payer MEDICAID, OTHER ==
[~2022-09-10] VITALS: Ht 167.6 cm; Wt 69.0 kg
[~2022-09-10 16:59] MED LIST changes: +ALBU6.7H3 INH
[2022-09-10] MEDS ORDERED: ONDANSETRON 4MG ODT PO STA (18:30)
[2022-09-10 18:51] LABS: CLARITY URINE CLEAR (CLEAR); COLOR URINE YELLOW (YELLOW); KETONES URINE 2+ (NEGATIVE); LEUKOCYTE ESTERASE URINE 1+ (NEGATIVE); NITRITE URINE NEGATIVE (NEGATIVE); OCCULT BLOOD URINE 2+ (NEGATIVE); PH URINE 5.5 (4.5-8.0); PROTEIN URINE 1+ (NEGATIVE); SPECIFIC GRAVITY URINE 1.043 (1.005-1.030)
[2022-09-10] MEDS ORDERED: FAMOTIDINE 20MG/2ML VIAL IV ONE (19:00)
[2022-09-10] MEDS ORDERED: MAGNESIUM/ALUMINUM HYDROXIDE/SIMETHICONE 30ML UDC PO ONE (19:00)
[2022-09-10] MEDS ORDERED: ONDANSETRON HCL 4MG/2ML INJ IV ONE (19:00)
[2022-09-10 19:11] LABS: HEMATOCRIT. 39.2 % (36.0-48.0); HEMOGLOBIN. 12.8 g/dL (12.0-16.0); LYMPHOCYTES % 15.6 % (20.0-50.0); MEAN CORPUSCULAR HEMOGLOBIN 27.2 pg (28.0-32.0); MEAN CORPUSCULAR VOLUME 82.9 fL (81.0-99.0); MEAN PLATELET VOLUME 7.8 fl (7.4-10.4); MONOCYTES % 6.3 % (2.0-8.0); NEUTROPHILS % 77.1 % (40.0-76.0); PLATELET 496 x1000/uL (130-400); RED BLOOD CELL COUNT 4.72 mill/uL (4.2-5.4); RED CELL DISTRIBUTION WIDTH 21.8 % (11.6-14.6)
[2022-09-10 19:13] LABS: CHLORIDE 104 mEq/L (98-107)
[2022-09-10] MEDS ORDERED: SODIUM CHLORIDE 0.9% 1,000 ML IV ONE (20:15)
[2022-09-10] MEDS ORDERED: KETOROLAC 15MG/ML VIAL IV ONE (20:15)
[2022-09-10] MEDS ORDERED: CEFTRIAXONE 1 G PREMIX 50 ML IV ONE (21:00)
[2022-09-10] MEDS ORDERED: NITR-87 MT (23:20)
[2022-09-10] MEDS ORDERED: CHLORDIAZEPOXIDE 25MG CAPSULE PO SCH (23:30)
[2022-09-10 23:41] VITALS: BP 130/82
== END 2022-09-10 23:41 | disposition home or self-care (01) ==
LOC: ER 16:59
DX: K29.20 Alcoholic gastritis without bleeding (principal); N39.0 Urinary tract infection, site not specified; F10.10 Alcohol abuse, uncomplicated; Y90.9 Presence of alcohol in blood, level not specified
CPT/HCPCS: 36415; 74176; 80053; 81003; 81025; 83690; 85025; 93005; 96361; 96365; 96375; 99285; J0696; J1885; J3490; J7030; Q0162

== ENCOUNTER 2022-10-14 12:10 | Emergency (ER) | payer MEDICAID ==
[~2022-10-14] VITALS: Ht 165.1 cm; Wt 75.0 kg
[~2022-10-14 12:10] MED LIST changes: +NITR-87 MT
[2022-10-14 12:30] VITALS: BP 127/90
[2022-10-14] MEDS ORDERED: ACETAMINOPHEN 325MG TABLET PO ONE (20:45)
[2022-10-14] MEDS ORDERED: METOCLOPRAMIDE HCL 10MG TABLET PO ONE (20:45)
[2022-10-14 21:08] LABS: CLARITY URINE CLOUDY (CLEAR); COLOR URINE YELLOW (YELLOW); KETONES URINE 4+ (NEGATIVE); LEUKOCYTE ESTERASE URINE NEGATIVE (NEGATIVE); NITRITE URINE NEGATIVE (NEGATIVE); OCCULT BLOOD URINE 1+ (NEGATIVE); PH URINE 5.5 (4.5-8.0); PROTEIN URINE 1+ (NEGATIVE); SPECIFIC GRAVITY URINE 1.025 (1.005-1.030)
[2022-10-14] MEDS ORDERED: NITR-87 MT (22:13)
== END 2022-10-14 22:24 | disposition home or self-care (01) ==
LOC: ER 12:10
DX: S09.90XA Unspecified injury of head, initial encounter (principal); Z79.899 Other long term (current) drug therapy; X58.XXXA Exposure to other specified factors, initial encounter; Y93.01 Activity, walking, marching and hiking; Y92.89 Other specified places as the place of occurrence of the external cause; Y99.8 Other external cause status
CPT/HCPCS: 70450; 81003; 81025; 99284; J8597

== ENCOUNTER 2022-11-14 15:02 | Emergency (ER) | payer MEDICAID ==
[~2022-11-14] VITALS: Ht 167.6 cm; Wt 68.0 kg
[2022-11-14 15:22] VITALS: BP 123/84
[2022-11-14] MEDS ORDERED: PSEU120T56 MT (20:24)
== END 2022-11-14 20:31 | disposition home or self-care (01) ==
LOC: ER 15:02
DX: S06.0X0A Concussion without loss of consciousness, initial encounter (principal); J06.9 Acute upper respiratory infection, unspecified; X58.XXXA Exposure to other specified factors, initial encounter; Y93.89 Activity, other specified; Y92.89 Other specified places as the place of occurrence of the external cause; Y99.8 Other external cause status; K21.9 Gastro-esophageal reflux disease without esophagitis; F14.10 Cocaine abuse, uncomplicated; Z20.822 Contact with and (suspected) exposure to COVID-19; F10.229 Alcohol dependence with intoxication, unspecified; Y90.0 Blood alcohol level of less than 20 mg/100 ml; Z79.899 Other long term (current) drug therapy
CPT/HCPCS: 70450; 71045; 81025; 87426; 87804; 93005; 99285; C9803